=== PATIENT | female | born 1985 | race Caucasian/White ===

== ENCOUNTER 2022-08-29 11:05 | Emergency (ER) | payer OTHER ==
[2022-08-29 11:26] VITALS: BP 123/84; PULSE 88
== END 2022-08-29 12:30 | disposition home or self-care (01) ==
LOC: JD.ED 11:05
DX: S99.921A Unspecified injury of right foot, initial encounter (principal); Z88.0 Allergy status to penicillin; Z91.011 Allergy to milk products; Z79.899 Other long term (current) drug therapy; W45.0XXA Nail entering through skin, initial encounter
CPT/HCPCS: 99283